=== PATIENT | female | born 1980 ===

== ENCOUNTER 2019-05-18 19:35 | Emergency (ER) | payer SELFPAY ==
[2019-05-18] MEDS ORDERED: cloNIDine 0.2 MG TAB PO ONE (21:00)
[2019-05-18] MEDS ORDERED: ONDANSETRON 4 MG ODT TAB PO ONE (21:00)
[2019-05-18] MEDS ORDERED: HYDROcodone/ACETAMINOPHEN 5-325 MG TAB PO ONE (21:00)
--- NOTE | 2019-05-18 21:03 | Emergency Department Report ---
Chief Complaint: Weakness Stated Complaint: WEAK/HEADACHE/ - HPI History of Present Illness: The pt is a 38 y/o F p/w a cc of GALE, n/v and chills. Pt denies preceeding trauma or rhinnorhea. Sxs have been present x 1 week but worsened today - Exam Vital Signs: Vital Signs 05/18/19 19:39 Temperature 97.9 F Pulse Rate 95 H Respiratory 18 Rate Blood Pressure 199/102 O2 Sat by Pulse 99 Oximetry MSE screening note: Focused history and physical exam performed. Due to findings the following was ordered: cbc, cmp, u/a, agustin ph CT Head clonidine, norco, zofran ED Disposition for MSE Condition: Stable
[2019-05-18 21:39] LABS: Basophils # (Auto) 0.1 K/mm3 (0.0-0.1); Basophils % (Auto) 0.5 % (0.0-1.8); Eosinophils % (Auto) 0.4 % (0.0-4.3); Hematocrit 35.6 % (30.3-42.9); Hemoglobin 11.6 gm/dl (10.1-14.3); Lymphocytes # (Auto) 1.6 K/mm3 (1.2-5.4); Lymphocytes % (Auto) 14.5 % (13.4-35.0); Mean Corpuscular HGB Conc 33 % (30-34); Mean Corpuscular Volume 84 fl (79-97); Monocytes # (Auto) 0.3 K/mm3 (0.0-0.8); Monocytes % (Auto) 2.6 % (0.0-7.3); Platelet Count 382 K/mm3 (140-440); Red Blood Count 4.25 M/mm3 (3.65-5.03); Red Cell Distribution Width 15.3 % (13.2-15.2)
--- NOTE | 2019-05-18 21:51 | Cat Scan Report ---
CT head/brain wo con INDICATION: GALE n/v. TECHNIQUE: All CT scans at this location are performed using the following dose modulation technique: Automated exposure control. CONTRAST: None. COMPARISON: None available. FINDINGS: The ventricular system is appropriate in size and configuration without midline shift. Nega tive for mass, stroke or hemorrhage. Imaged portions of the paranasal sinuses are clear. IMPRESSION: Negative CT brain without contrast. Signer Name: Yeyo Melchor MD Signed: 05/18/2019 9:46 PM Workstation Name: [email or web address]
[2019-05-18 21:56] LABS: Alanine Aminotransferase 13 units/L (7-56); BUN/Creatinine Ratio 11; Blood Urea Nitrogen 17 mg/dL (7-17); Calcium 8.9 mg/dL (8.4-10.2); Hemolysis Index 8
[2019-05-18] MEDS ORDERED: ONDANSETRON 4 MG/2 ML INJ IV ONE (22:26)
[2019-05-18] MEDS ORDERED: KETOROLAC 30 MG/1 ML INJ IV ONE (22:26)
[2019-05-18] MEDS ORDERED: SODIUM CHLORIDE 0.9% 1000 ML 1,000 ML IV ONE ×2 (22:26)
[2019-05-18] MEDS ORDERED: FAMOTIDINE 20 MG/2 ML INJ IV ONE (22:26)
[2019-05-18 22:31] LABS: Bilirubin,Urine NEG (Negative); Blood,Urine SM (Negative); Color,Urine Straw (Yellow); Mucus,Urine FEW /HPF; Urobilinogen,Urine < 2.0 mg/dL (<2.0)
[2019-05-18 22:32] LABS: Protein,Urine >500 mg/dL (Negative)
--- NOTE | 2019-05-18 22:50 | Emergency Department Report ---
ED General Adult HPI - General Chief complaint: Weakness Stated complaint: WEAK/HEADACHE/ Time Seen by Provider: 05/18/19 22:13 Source: patient, family Mode of arrival: Ambulatory Limitations: Language Barrier - History of Present Illness Initial comments: Patient is a 38-year-old female with a past history of insulin- dependent diabetes who is presenting with a headache for the past day. Patient began vomiting-hour prior to arrival. Patient does have a history of headaches occasionally and has possibility of migraines. Headache is frontal. There is no complaints of of any neck stiffness or fever. Patient does not normally get nausea vomiting with her headaches. Patient has very mild epigastric discomfort when she vomits but otherwise states there is no abdominal pain. Patient denies any diarrhea. Severity scale (0 -10): 10 - Related Data Previous Rx's Medication Instructions Recorded Last Taken Type Amlodipine Besylate [Norvasc] 5 mg PO DAILY #30 tablet 05/19/19 Unknown Rx Famotidine [Pepcid] 20 mg PO BID #20 tablet 05/19/19 Unknown Rx Ondansetron [Zofran Odt] 4 mg PO Q8HR #10 tab.rapdis 05/19/19 Unknown Rx Allergies Allergy/AdvReac Type Severity Reaction Status Date / Time No Known Allergies Allergy Unverified 05/18/19 21:02 ED Review of Systems ROS: Stated complaint: WEAK/HEADACHE/ Other details as noted in HPI Comment: All other systems reviewed and negative ED Past Medical Hx - Past Medical History Previous Medical History?: Yes Hx Hypertension: Yes Hx Diabetes: Yes Additional medical history: Anemia - Surgical History Past Surgical History?: Yes Hx Cholecystectomy: Yes Hx Appendectomy: Yes Additional Surgical History: Colon polyps - Social History Smoking Status: Never Smoker Substance Use Type: None - Medications Home Medications: Home Medications Medication Instructions Recorded Confirmed Last Taken Type Amlodipine Besylate [Norvasc] 5 mg PO DAILY #30 tablet 05/19/19 Unknown Rx Famotidine [Pepcid] 20 mg PO BID #20 tablet 05/19/19 Unknown Rx Ondansetron [Zofran Odt] 4 mg PO Q8HR #10 tab.rapdis 05/19/19 Unknown Rx ED Physical Exam - General Limitations: Language Barrier General appearance: alert, anxious (actively vomiting) - Head Head exam: Present: atraumatic, normocephalic - Eye Eye exam: Present: normal appearance, PERRL, EOMI - ENT ENT exam: Present: mucous membranes moist - Neck Neck exam: Present: normal inspection - Respiratory Respiratory exam: Present: normal lung sounds bilaterally. Absent: respiratory distress, wheezes, rales, rhonchi - Cardiovascular Cardiovascular Exam: Present: normal rhythm, tachycardia. Absent: systolic murmur, diastolic murmur, rubs, gallop - GI/Abdominal GI/Abdominal exam: Present: soft, normal bowel sounds. Absent: distended, tenderness, guarding, rebound - Extremities Exam Extremities exam: Present: normal inspection - Back Exam Back exam: Present: normal inspection - Neurological Exam Neurological exam: Present: alert, oriented X3 - Psychiatric Psychiatric exam: Present: normal affect, normal mood - Skin Skin exam: Present: warm, dry, intact, normal color. Absent: rash ED Course Vital Signs 05/18/19 05/18/19 05/18/19 19:39 21:08 22:15 Temperature 97.9 F Pulse Rate 95 H 95 H 103 H Respiratory 18 15 Rate Blood Pressure 199/102 199/102 207/114 O2 Sat by Pulse 99 Oximetry 05/18/19 05/18/19 05/18/19 22:45 22:54 23:15 Temperature Pulse Rate 99 H 95 H 99 H Respiratory 15 15 Rate Blood Pressure 203/114 203/113 194/95 O2 Sat by Pulse Oximetry 05/18/19 05/18/19 05/18/19 23:19 23:30 23:45 Temperature Pulse Rate 102 H 104 H Respiratory 15 14 13 Rate Blood Pressure 195/103 193/104 O2 Sat by Pulse 99 Oximetry 05/19/19 05/19/19 00:00 00:11 Temperature Pulse Rate 105 H 99 H Respiratory 12 Rate Blood Pressure 199/106 194/95 O2 Sat by Pulse Oximetry ED Medical Decision Making - Lab Data Result diagrams: 05/18/19 21:08 05/18/19 21:08 Lab Results 05/18/19 05/18/19 05/18/19 Range/Units 21:08 21:08 21:08 WBC 11.0 (4.5-11.0) K/mm3 RBC 4.25 (3.65-5.03) M/mm3 Hgb 11.6 (10.1-14.3) gm/dl Hct 35.6 (30.3-42.9) % MCV 84 (79-97) fl MCH 27 L (28-32) pg MCHC 33 (30-34) % RDW 15.3 H (13.2-15.2) % Plt Count 382 (140-440) K/mm3 Lymph % (Auto) 14.5 (13.4-35.0) % Nobles % (Auto) 2.6 (0.0-7.3) % Eos % (Auto) 0.4 (0.0-4.3) % Baso % (Auto) 0.5 (0.0-1.8) % Lymph # 1.6 (1.2-5.4) K/mm3 Nobles # 0.3 (0.0-0.8) K/mm3 Eos # 0.0 (0.0-0.4) K/mm3 Baso # 0.1 (0.0-0.1) K/mm3 Seg Neutrophils % 82.0 H (40.0-70.0) % Seg Neutrophils # 9.1 H (1.8-7.7) K/mm3 VBG pH 7.430 H (7.320-7.420) Sodium 133 L (137-145) mmol/L Potassium 4.3 (3.6-5.0) mmol/L Chloride 102.3 (98-107) mmol/L Carbon Dioxide 15 L (22-30) mmol/L Anion Gap 20 mmol/L BUN 17 (7-17) mg/dL Creatinine 1.6 H (0.7-1.2) mg/dL Estimated GFR 36 ml/min BUN/Creatinine Ratio 11 % Glucose 246 H (65-100) mg/dL POC Glucose (70-105) Calcium 8.9 (8.4-10.2) mg/dL Total Bilirubin < 0.20 (0.1-1.2) mg/dL AST 15 (5-40) units/L ALT 13 (7-56) units/L Alkaline Phosphatase 138 H (35-129) units/L Total Protein 7.0 (6.3-8.2) g/dL Albumin 3.0 L (3.9-5) g/dL Albumin/Globulin Ratio 0.8 % Urine Color (Yellow) Urine Turbidity (Clear) Urine pH (5.0-7.0) Ur Specific [place] (1.003-1.030) Urine Protein (Negative) mg/dL Urine Glucose (UA) (Negative) mg/dL Urine Ketones (Negative) mg/dL Urine Blood (Negative) Urine Nitrite (Negative) Urine Bilirubin (Negative) Urine Urobilinogen (<2.0) mg/dL Ur Leukocyte Esterase (Negative) Urine WBC (Auto) (0.0-6.0) /HPF Urine RBC (Auto) (0.0-6.0) /HPF U Epithel Cells (Auto) (0-13.0) /HPF Urine Mucus /HPF 05/18/19 05/18/19 Range/Units 21:54 22:29 WBC (4.5-11.0) K/mm3 RBC (3.65-5.03) M/mm3 Hgb (10.1-14.3) gm/dl Hct (30.3-42.9) % MCV (79-97) fl MCH (28-32) pg MCHC (30-34) % RDW (13.2-15.2) % Plt Count (140-440) K/mm3 Lymph % (Auto) (13.4-35.0) % Nobles % (Auto) (0.0-7.3) % Eos % (Auto) (0.0-4.3) % Baso % (Auto) (0.0-1.8) % Lymph # (1.2-5.4) K/mm3 [place]les # (0.0-0.8) K/mm3 Eos # (0.0-0.4) K/mm3 Baso # (0.0-0.1) K/mm3 Seg Neutrophils % (40.0-70.0) % Seg Neutrophils # (1.8-7.7) K/mm3 VBG pH (7.320-7.420) Sodium (137-145) mmol/L Potassium (3.6-5.0) mmol/L Chloride (98-107) mmol/L Carbon Dioxide (22-30) mmol/L Anion Gap mmol/L BUN (7-17) mg/dL Creatinine (0.7-1.2) mg/dL Estimated GFR ml/min BUN/Creatinine Ratio % Glucose (65-100) mg/dL POC Glucose 324 H (70-105) Calcium (8.4-10.2) mg/dL Total Bilirubin (0.1-1.2) mg/dL AST (5-40) units/L ALT (7-56) units/L Alkaline Phosphatase (35-129) units/L Total Protein (6.3-8.2) g/dL Albumin (3.9-5) g/dL Albumin/Globulin Ratio % Urine Color Straw (Yellow) Urine Turbidity Clear (Clear) Urine pH 7.0 (5.0-7.0) Ur Specific [place] 1.009 (1.003-1.030) Urine Protein >500 (Negative) mg/dL Urine Glucose (UA) >=500 (Negative) mg/dL Urine Ketones Neg (Negative) mg/dL Urine Blood Sm (Negative) Urine Nitrite Neg (Negative) Urine Bilirubin Neg (Negative) Urine Urobilinogen < 2.0 (<2.0) mg/dL Ur Leukocyte Esterase Neg (Negative) Urine WBC (Auto) 2.0 (0.0-6.0) /HPF Urine RBC (Auto) 20.0 (0.0-6.0) /HPF U Epithel Cells (Auto) 3.0 (0-13.0) /HPF Urine Mucus Few /HPF - Medical Decision Making Patient was given some oral Zofran which did not help the patient's symptoms. IV was established and the patient was given IV Zofran and eventually Reglan for nausea. After Reglan patient is noted to be resting comfortably. Patient does have a new diagnosis of hypertension and has been discovered. Patient was given labetalol 2 and her pressure did decrease to 170s systolic. Patient has no chest pain or focal neurological deficit. Patient be started on Norvasc. Nausea medicines will be prescribed for the patient as well she'll follow with her primary care physician. Critical care attestation.: If time is entered above; I have spent that time in minutes in the direct care of this critically ill patient, excluding procedure time. ED Disposition Clinical Impression: Hypertensive urgency, Hyperglycemia, Gastritis, Nausea & vomiting, Mild dehydration Disposition: - TO HOME OR SELFCARE Is pt being admited?: No Does the pt Need Aspirin: No Condition: Stable Instructions: Hypertension (ED), Gastritis (ED), Diet for Ulcers and Gastritis (ED), Diabetic Hyperglycemia (ED) Referrals: PRIMARY CARE, [Primary Care Provider] - 3-5 Days Time of Disposition: 02:40 Print Language: SAMI
[2019-05-18 23:19] VITALS: BP 194/95
[2019-05-19] MEDS ORDERED: METOCLOPRAMIDE 10 MG/2 ML INJ IV ONE (01:42)
== END 2019-05-19 03:45 | disposition home or self-care (01) ==
LOC: ED 19:35
DX: I16.0 Hypertensive urgency (principal); K29.60 Other gastritis without bleeding; E86.0 Dehydration; E11.65 Type 2 diabetes mellitus with hyperglycemia; Z86.2 Personal history of diseases of the blood and blood-forming organs and certain disorders involving the immune mechanism; Z90.49 Acquired absence of other specified parts of digestive tract; Z79.899 Other long term (current) drug therapy
CPT/HCPCS: 36415; 70450; 80053; 81001; 82805; 82962; 85025; 96361; 96374; 96375; 99284; J1885; J2405; J2765; J7030; Q0162